=== PATIENT | female | born 1965 | race Caucasian/White ===

== ENCOUNTER 2018-10-25 08:55 | Inpatient (IN) ==
--- NOTE | 2018-10-20 08:21 | EKG Report ---
Test Performed on : 10/20/2018 07:54:21 AM Test Reason : PAT Blood Pressure : / mmHG Vent. Rate : 055 BPM Atrial Rate : 055 BPM P-R Int : 204 ms QRS Dur : 112 ms QT Int : 400 ms P-R-T Axes : 052 -22 044 degrees QTc Int : 382 ms Sinus bradycardia. Otherwise normal ECG When compared with ECG of 12-SEP-2010 15:24, No significant change was found Confirmed by Luma HENDRICKS, Star Muñiz ([id number]) on 10/20/2018 5:18:54 PM
[2018-10-20 08:41] LABS: URINE SOURCE CLEAN CATCH
[2018-10-20 08:47] LABS: BASO# 0.02 X1000 (0.0-0.2); BASO% 0.4 % (0.0-0.8); EOS# 0.14 X1000 (0.0-0.7); EOS% 2.8 % (0.0-10.0); LYMPH# 1.73 X1000 (1.2-3.4); LYMPH% 34.2 % (20.5-51.1); MCHC 33.3 g/dL (33-37); MONO# 0.49 X1000 (0.11-0.59); MONO% 9.7 % (1.7-9.3); MPV 10.7 FL (7.4-10.4); NEUT# 2.68 X1000 (1.4-6.5); NEUT% 52.9 % (42.2-75.2); PLT 235 X1000 (130-400); RBC 5.52 XMIL (4.2-5.4); RDW 13.6 % (11.5-14.5); WBC 5.06 X1000 (4.8-10.8)
[2018-10-20 08:53] LABS: INR 1.02; PROTIME 13.5 Seconds (11.0-16.0)
[2018-10-20 08:54] LABS: BILIRUBIN URINE NEGATIVE (NEGATIVE); BLOOD URINE NEGATIVE (NEGATIVE); COLOR YELLOW; GLUCOSE URINE NEGATIVE (NEGATIVE); KETONE URINE NEGATIVE (NEGATIVE); LEUKOCYTES URINE SMALL (NEGATIVE); NITRITE URINE NEGATIVE (NEGATIVE); PROTEIN URINE NEGATIVE (NEGATIVE); PTT 28.3 Seconds (22.3-41.8); SP GRAVITY URINE 1.019; TURBIDITY URINE CLEAR (CLEAR); UROBILINOGEN URINE NORMAL (NORMAL)
[2018-10-20 08:56] LABS: UR EPITHELIAL CELLS <10 /HPF (<10); URINE BACTERIA NEGATIVE /HPF; URINE RBC <10 /HPF (<10); URINE WBC <10 /HPF (<10)
[2018-10-20 09:01] LABS: HEMOGLOBIN A1C 5.3 % (4.8-6.0)
[2018-10-20 09:11] LABS: AGAP 9; ALBUMIN 4.4 g/dL (3.5-5.0); BUN 15 mg/dL (8-22); CALCIUM 9.6 mg/dL (8.8-10.2); CHLORIDE 101 mmol/L (98-107); COSMO 281; CREATININE 0.7 mg/dL (0.5-0.9); ESTIMATED GFR > 60; GLUCOSE 116 mg/dL (70-104); SODIUM 140 mmol/L (136-145); TCO2 30 mmol/L (25-35)
[2018-10-25] MEDS ORDERED: DIPRIVAN 1% ONE ×2 (09:29→13:23)
[2018-10-25] MEDS ORDERED: VERSED ONE (09:29)
[2018-10-25] MEDS ORDERED: FENTANYL ONE (09:29)
[2018-10-25] MEDS ORDERED: ROBINUL ONE ×2 (09:29→13:23)
[2018-10-25] MEDS ORDERED: XYLOCAINE-MPF 2% ONE ×2 (09:29→13:23)
[2018-10-25] MEDS ORDERED: EPHEDRINE ONE (09:37)
[2018-10-25] MEDS ORDERED: COLACE ONE (09:53)
[2018-10-25] MEDS ORDERED: PEPCID ONE (09:53)
[2018-10-25] MEDS ORDERED: REGLAN ONE (09:53)
[2018-10-25] MEDS ORDERED: LYRICA ONE (09:54)
[2018-10-25] MEDS ORDERED: KEFZOL 1 GM/D5W 2 GM/100 ML IVPB ONE (09:54)
[2018-10-25] MEDS ORDERED: LR 1,000 ML ONE (09:54)
[2018-10-25] MEDS ORDERED: CELEBREX ONE (09:54)
[2018-10-25] MEDS ORDERED: DURAMORPH ONE (11:54)
[2018-10-25] MEDS ORDERED: MARCAINE 0.25% PF ONE (11:54)
[2018-10-25] MEDS ORDERED: TORADOL ONE ×2 (11:54→12:35)
[2018-10-25] MEDS ORDERED: EXPAREL 1.3% ONE (11:55)
[2018-10-25] MEDS ORDERED: CYKLOKAPRON 1,000 MG/NS 1,000 MG/100 ML IVPB ONE ×2 (11:55→11:57)
[2018-10-25] MEDS ORDERED: VANCOMYCIN ONE (11:55)
[2018-10-25] MEDS ORDERED: SODIUM CHLORIDE 0.9% ONE (11:55)
[2018-10-25] MEDS ORDERED: NEOSPORIN G.U. IRRIGANT ONE (11:57)
[2018-10-25] MEDS ORDERED: DECADRON ONE (12:35)
[2018-10-25] MEDS ORDERED: ZOFRAN ONE (12:35)
[2018-10-25] MEDS ORDERED: OFIRMEV 1000 MG/ISOTONIC SOLN 1,000 MG/100 ML BOTTLE ONE (12:35)
[2018-10-25 13:51] LABS: URINE SOURCE CATH
[2018-10-25 14:05] LABS: COLOR STRAW; TURBIDITY URINE CLEAR (CLEAR)
[2018-10-25 14:06] LABS: BILIRUBIN URINE NEGATIVE (NEGATIVE); BLOOD URINE NEGATIVE (NEGATIVE); GLUCOSE URINE NEGATIVE (NEGATIVE); KETONE URINE NEGATIVE (NEGATIVE); LEUKOCYTES URINE NEGATIVE (NEGATIVE); NITRITE URINE NEGATIVE (NEGATIVE); PH URINE 6.5; PROTEIN URINE NEGATIVE (NEGATIVE); SP GRAVITY URINE 1.008; UROBILINOGEN URINE NORMAL (NORMAL)
[2018-10-25 14:09] LABS: UR EPITHELIAL CELLS <10 /HPF (<10); URINE BACTERIA NEGATIVE /HPF; URINE RBC <10 /HPF (<10); URINE WBC <10 /HPF (<10)
[2018-10-25] MEDS ORDERED: NS 1,000 ML ONE (15:08)
[2018-10-25] MEDS: NS 1,000 ML IV SCH (16:44)
[2018-10-25] MEDS ORDERED: MORPHINE IV PRN ×3 (16:45)
[2018-10-25] MEDS ORDERED: MILK OF MAGNESIA PO PRN (16:45)
[2018-10-25] MEDS ORDERED: ZOFRAN IV PRN (16:45)
[2018-10-25] MEDS ORDERED: ZOFRAN ODT PO PRN (16:45)
[2018-10-25] MEDS ORDERED: OXY IR PO PRN (16:45)
[2018-10-25] MEDS: ULTRAM PO SCH ×2 (16:47→23:05)
[2018-10-25] MEDS ORDERED: FLONASE NAS PRN (17:11)
[2018-10-25] MEDS ORDERED: CYANOCOBALAMIN INJ SCH (17:15)
[2018-10-25] MEDS: KEFZOL 2 GM/D5W 2 GM/50 ML IVPB IV SCH (19:54)
[2018-10-25] MEDS: LYRICA PO SCH (19:55)
[2018-10-25] MEDS: RESTORIL PO SCH (19:55)
[2018-10-25] MEDS: PERIDEX MT SCH (19:55)
[2018-10-25] MEDS: COLACE PO SCH (19:55)
[2018-10-25] MEDS: TYLENOL PO SCH (19:56)
[2018-10-25] MEDS: MIRAPEX PO SCH (19:56)
[2018-10-25] MEDS: CELEBREX PO SCH (19:57)
--- NOTE | 2018-10-25 20:11 | OPERATIVE NOTE ---
PROCEDURE DATE: 10/25/2018 PREOPERATIVE DIAGNOSIS: Right knee degenerative joint disease. POSTOPERATIVE DIAGNOSIS: Right knee degenerative joint disease. PROCEDURE: Right total knee arthroplasty using [facility] size 4 femoral component, size 5 tibial base plate, a 14 mm articular insert, and a 35 mm patellar component. ANESTHESIA: Spinal. SURGEON: Warren Fonseca MD. 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 BLOOD LOSS: Minimal. TOURNIQUET TIME: An hour. DESCRIPTION OF PROCEDURE: The patient was brought to the operative suite and placed in supine position. After successful administration of spinal anesthesia, a well-padded tourniquet was placed on the right proximal thigh. The right lower extremity was prepped and draped in the usual sterile fashion. Leg was exsanguinated. Tourniquet insufflated to 350 torr. A longitudinal incision was made beginning at the superior pole of the patella and extended distally to the tibia tuberosities dissected sharply through the skin. Full-thickness skin flaps were elevated medially and laterally. A medial arthrotomy was made and then the medial capsule was elevated off the medial tibial plateau. The ACL, PCL, medial meniscus, and lateral meniscus were excised. A drill was entered into the center of the distal femur. An intramedullary guide was placed. The cutting block was pinned in place. Distal cut was made with oscillating saw. The femur was sized to a size 4. A size 4 cutting block was pinned in place. Anterior cuts, chamfer cuts, and posterior condylar cuts were made with the oscillating saw. The box cutting block was pinned in place. Box cut was made with a box osteotome and oscillating saw. Posterior condyle osteophytes were removed the curved osteotome and rongeur. Marginal osteophytes were removed with a rongeur. The anterior chamfer was fashioned as a bone plug to fill the femoral bone entry portal and once it was fashioned, it was driven in place with the slap hammer. Once this was completed, attention was directed to the tibia. A drill was entered in the center of the tibia. Intramedullary guide was placed. The tibial cutting block was pinned in place, taking 4 mm off the low side the tibia using the drop sangita for alignment. Once this verified to be in good position, the articular surface of the tibial plateau was removed with an oscillating saw. Flexion and extension gaps were checked and balanced at 14 mm. The tibia sized to a size 5. A size 5 guide was pinned in [address]. The tibial trial, femoral trial and 14 mm articular plates placed. The tibia was taken through range of motion and found to have excellent alignment, balancing and range of motion. Attention was directed to the patella. Then, 9 mm of the articular surface patella removed with oscillating saw. The patella was sized to a size 35. A size 3 PEG guide was used drill peg holes, lateral facet was chamfered 30 to 45 degrees. Patella trial placed, taken through range of motion. I had excellent patella tracking. All trials were then removed. The knee was copiously irrigated and dried, being certain all bone debris was removed. The tibial component, femoral component, and patellar component were cemented into place with excess cement being removed with a [place]. Once the cement had hardened, excess cement was again removed with an osteotome. The knee was again copiously irrigated and dried, being certain all bone and cement debris removed. The trial articular insert was removed. The knee was copiously infiltrated with Exparel, including the posterior capsule, anterior capsule, anterior musculature, and subcutaneous tissue. A drain was placed exiting superior laterally and buried in the lateral gutter. The tourniquet was deflated. Hemostasis was obtained with electrocautery. The definitive 14 mm articular insert was locked into place. The knee was again taken through range of motion and again found have excellent alignment, balancing, range of motion, and patellar tracking. All hemostasis was obtained well with electrocautery. The knee was again copiously irrigated with normal saline containing irrigant a Vashe irrigation. Then, the medial arthrotomy was closed with #1 Vicryl. The skin edge was approximated with 2-0 Vicryl. Skin was closed with Prineo and a sterile dressing was applied. The patient tolerated the procedure well without complication. At the end the procedure, all counts correct x2. The patient's transferred recovery room stable condition. cc: Warren Fonseca MD
[2018-10-25] MEDS: OXY IR PO PRN (21:00)
[2018-10-26] MEDS: OXY IR PO PRN ×5 (03:12→17:35)
[2018-10-26] MEDS: RESTORIL PO SCH (03:15)
[2018-10-26] MEDS: COLACE PO SCH ×2 (03:15→09:34)
[2018-10-26] MEDS: CELEBREX PO SCH ×2 (03:15→09:34)
[2018-10-26] MEDS: PERIDEX MT SCH ×2 (03:16→09:33)
[2018-10-26] MEDS: MIRAPEX PO SCH (03:16)
[2018-10-26] MEDS: LYRICA PO SCH ×2 (03:16→09:33)
[2018-10-26] MEDS: TYLENOL PO SCH ×2 (04:54→11:00)
[2018-10-26] MEDS: KEFZOL 2 GM/D5W 2 GM/50 ML IVPB IV SCH (04:54)
[2018-10-26] MEDS: ULTRAM PO SCH ×2 (04:54→11:00)
[2018-10-26] MEDS: NS 1,000 ML IV SCH ×2 (04:55→06:27)
[2018-10-26 06:20] LABS: HEMATOCRIT 40.9 % (37.0-47.0); HEMOGLOBIN 13.6 g/dL (12.0-16.0)
[2018-10-26 06:46] LABS: AGAP 10; BUN 12 mg/dL (8-22); CHLORIDE 103 mmol/L (98-107); COSMO 280; CREATININE 0.7 mg/dL (0.5-0.9); ESTIMATED GFR > 60; GLUCOSE 142 mg/dL (70-104); POTASSIUM 5.1 mmol/L (3.5-5.1); SODIUM 139 mmol/L (136-145); TCO2 26 mmol/L (25-35)
[2018-10-26] MEDS ORDERED: ASPIRIN PO SCH (09:00)
[2018-10-26] MEDS ORDERED: DECADRON IV ONE (09:00)
[2018-10-26] MEDS ORDERED: ZYRTEC PO SCH (09:00)
[2018-10-26] MEDS ORDERED: PEPCID PO SCH (09:00)
[2018-10-26 16:30] VITALS: BP 133/82
--- NOTE | 2018-10-27 03:16 | DISCHARGE SUMMARY ---
ADMISSION DATE: 10/25/2018 DISCHARGE DATE: 10/26/2018 DISCHARGE DIAGNOSIS: Right knee degenerative joint disease status post right total knee arthroplasty. DISCHARGE MEDICATION: See discharge medication list. DISPOSITION: The patient discharged home with home health physical therapy. Instructed to return for any signs or symptoms of infection, deep venous thrombosis. Instructed to return to see Dr. Fonseca next . HOSPITAL COURSE: On the day of admission, patient underwent a right total knee arthroplasty. Her postoperative course was unremarkable. At discharge, she is afebrile, tolerating a regular diet, ambulating well with physical therapy. Her wound is clean, dry, intact without sign of infection. Her calf is soft without sign of DVT. Her hematocrit is stable at 40.9. She is discharged home in stable condition with instructions to follow up as described above. cc: Warren Fonseca MD
== END 2018-10-26 17:52 | disposition home health service (06) | DRG 470 ==
LOC: 4N 08:55 → OR 08:55 → OBSVTOIN 16:00
PROVIDERS: ADMIT Orthopaedic Surgery; ATTEND Orthopaedic Surgery